=== PATIENT | female | born 1990 | race Two or more races ===

== ENCOUNTER 2022-07-02 04:53 | Emergency (ER) | payer OTHER ==
[~2022-07-02] VITALS: Ht 157.5 cm; Wt 95.7 kg
== END 2022-07-02 12:12 | disposition home or self-care (01) ==
LOC: ER 04:53
DX: O21.9 Vomiting of pregnancy, unspecified (principal); O23.41 Unspecified infection of urinary tract in pregnancy, first trimester; N39.0 Urinary tract infection, site not specified; Z3A.01 Less than 8 weeks gestation of pregnancy

== ENCOUNTER 2022-10-01 12:31 | Outpatient (CLI) | payer OTHER | END 2022-10-01 13:35 | disposition home or self-care (01) | LOC: PRENATAL 12:31 | PROVIDERS: ATTEND Obstetrics & Gynecology Maternal & Fetal Medicine | DX: O35.9XX0 Maternal care for (suspected) fetal abnormality and damage, unspecified, not applicable or unspecified (principal); O35.3XX0 Maternal care for (suspected) damage to fetus from viral disease in mother, not applicable or unspecified; O99.210 Obesity complicating pregnancy, unspecified trimester; O34.80 Maternal care for other abnormalities of pelvic organs, unspecified trimester; O28.1 Abnormal biochemical finding on antenatal screening of mother; Z3A.20 20 weeks gestation of pregnancy ==

== ENCOUNTER 2022-12-26 14:02 | Outpatient (CLI) | payer OTHER | END 2022-12-26 15:02 | disposition home or self-care (01) | LOC: PRENATAL 14:02 | PROVIDERS: ATTEND Obstetrics & Gynecology Maternal & Fetal Medicine | DX: O35.3XX0 Maternal care for (suspected) damage to fetus from viral disease in mother, not applicable or unspecified (principal); O28.1 Abnormal biochemical finding on antenatal screening of mother; O99.210 Obesity complicating pregnancy, unspecified trimester; Z3A.32 32 weeks gestation of pregnancy ==